=== PATIENT | male | born 1950 | race Caucasian/White ===

== ENCOUNTER 2025-02-02 14:48 | Emergency (ER) | payer MEDICARE, OTHER ==
[~2025-02-02] VITALS: Ht 180.3 cm; Wt 127.0 kg
[2025-02-02] MEDS ORDERED: KETOROLAC TROMETHAMINE 15 MG/ML VIAL ONE (16:08)
[2025-02-02] MEDS: KETOROLAC TROMETHAMINE 15 MG/ML VIAL IM ONE (16:25)
[2025-02-02] MEDS ORDERED: IBUP-1490 PO (17:25)
[2025-02-02] MEDS ORDERED: ACET-73 PO (17:25)
[2025-02-02 17:53] VITALS: BP 136/95; TEMP 98; O2SAT 99
== END 2025-02-02 17:54 | disposition home or self-care (01) ==
LOC: ER 14:59
DX: M25.552 Pain in left hip (principal); I48.91 Unspecified atrial fibrillation
CPT/HCPCS: 99285; 96372; 73503; J1885; 73502